=== PATIENT | female | born 1945 | race African-American/Black ===

== ENCOUNTER 2018-02-10 11:01 | Emergency (ER) | payer OTHER ==
[~2018-02-10] VITALS: Ht 172.7 cm; Wt 61.7 kg
[~2018-02-10 11:01] MED LIST: APETIGEN ELIXI120 ML PO; ATORVASTATIN CA40 MG; CARDIZEM LA300 MG; ECOTRIN81 MG; FOLIC ACID1 MG; GALANTAMINE HBR8 MG; GLUCOPHAGE XR500 MG; LIPITOR40 MG; MEDROLPACK PO; METFORMIN HYDRO25 GM; MIRALAX510 GM PO; MONTELUKAST SOD10 MG; SINGULAIR10 MG; SYNTHROID88 MCG; TESSALON PERLE100 M1 PO; TUSSI PRES-B L120 M1 PO; TUSSI-PRES LIQ118 ML PO; VISTARIL25 MG PO; XOPENEX1.25 MG/0. IH; ZANTAC150 M3; ZESTORETIC 10-1 EACH; ZYNCOF 20-400120 ML PO; [UNRECOGNIZED DRUG - OTHER] PO
[2018-02-10] MEDS ORDERED: KETO10TA2 PO (14:37)
== END 2018-02-10 14:41 | disposition home or self-care (01) ==
LOC: ER 11:01
DX: M25.531 Pain in right wrist (principal)

== ENCOUNTER 2018-07-27 16:31 | Emergency (ER) | payer OTHER ==
[~2018-07-27] VITALS: Ht 172.7 cm; Wt 62.6 kg
[~2018-07-27 16:31] MED LIST changes: +KETO10TA2 PO
== END 2018-07-27 18:32 | disposition home or self-care (01) ==
LOC: ER 16:31
DX: M54.5 Low back pain (principal)

== ENCOUNTER → 2019-06-25 | Emergency (ER) | payer OTHER ==
[~2019-06-25] VITALS: Ht 172.7 cm; Wt 65.8 kg
== END | disposition home or self-care (01) ==
LOC: ER 19:00
DX: R42 Dizziness and giddiness (principal); R00.2 Palpitations

== ENCOUNTER 2020-05-26 07:14 | Outpatient (CLI) | payer OTHER | END 2020-05-26 07:19 | disposition home or self-care (01) | LOC: TOM 07:14 | PROVIDERS: ATTEND Internal Medicine Gastroenterology | DX: R10.31 Right lower quadrant pain (principal) | CPT/HCPCS: 74177; Q9965 ==

== ENCOUNTER 2021-07-14 07:08 | Outpatient (CLI) | payer OTHER | END 2021-07-14 07:23 | disposition home or self-care (01) | LOC: TOM 07:08 | PROVIDERS: ATTEND Internal Medicine Gastroenterology | DX: K57.90 Diverticulosis of intestine, part unspecified, without perforation or abscess without bleeding (principal); K56.50 Intestinal adhesions [bands], unspecified as to partial versus complete obstruction; K56.600 Partial intestinal obstruction, unspecified as to cause ==

== ENCOUNTER 2022-04-04 08:13 | Emergency (ER) | payer OTHER ==
[~2022-04-04] VITALS: Ht 172.7 cm; Wt 63.5 kg
[2022-04-04] MEDS ORDERED: GLIMEPIRIDE2 MG (08:28)
[2022-04-04] MEDS ORDERED: SINGULAIR10 MG PO (08:29)
[2022-04-04] MEDS ORDERED: ZANTAC25 MG/1 ML (08:29)
[2022-04-04] MEDS ORDERED: DEXILANT60 MG PO (08:30)
== END 2022-04-04 10:08 | disposition home or self-care (01) ==
LOC: ER 08:13
DX: T78.3XXA Angioneurotic edema, initial encounter (principal); X58.XXXA Exposure to other specified factors, initial encounter; Y92.9 Unspecified place or not applicable; E11.9 Type 2 diabetes mellitus without complications; Z79.84 Long term (current) use of oral hypoglycemic drugs; I10 Essential (primary) hypertension; Z88.8 Allergy status to other drugs, medicaments and biological substances

== ENCOUNTER 2022-05-01 09:07 | Outpatient (CLI) | payer OTHER ==
[~2022-05-01 09:07] MED LIST changes: +DEXILANT60 MG PO; +GLIMEPIRIDE2 MG; +SINGULAIR10 MG PO; +ZANTAC25 MG/1 ML
== END 2022-05-01 09:15 | disposition home or self-care (01) ==
LOC: SONOGRAMA 09:07
DX: K76.0 Fatty (change of) liver, not elsewhere classified (principal)

== ENCOUNTER 2024-10-22 13:47 | Emergency (ER) | payer OTHER ==
[~2024-10-22] VITALS: Ht 172.7 cm; Wt 72.6 kg
[2024-10-22] MEDS ORDERED: KETOROLAC TROMETHAMINE 60 MG VIAL IM STA (15:44)
[2024-10-22] MEDS ORDERED: KETOROLAC TROMETHAMINE 60 MG VIAL IM ONE (15:58)
[2024-10-22 16:13] LABS: HEMATOCRIT 33.3 % (36.0-45.00); HEMOGLOBIN 10.8 g/dL (12.0-15.00); MEAN CELL VOLUME 72.5 fL (80.00-100.00); MEAN CORPUSCULAR HEMOGLOBIN 23.4 pg (27.00-32.0); MEAN CORPUSCULAR HGB CONC 32.2 g/dl (32.0-36.0); PLATELET COUNT 303 K/uL (150-450); RED CELL DISTRIBUTION WIDTH 16.4 % (11.5-14.5)
[2024-10-22 16:39] LABS: ALBUMIN 3.4 gm/dL (3.4-5.0); BILIRUBIN TOTAL 0.63 mg/dL (0.3-1.2); CREATININE SERUM 0.79 mg/dL (0.55-1.02); GFR 70.38; GLOBULINA 4.4 G/DL (2.4-3.5); POTASSIUM 4.47 mEq/L (3.5-5.1); TOTAL PROTEIN 7.8 gm/dL (6.4-8.2)
[2024-10-22 17:02] LABS: PH,URINE 5.5 (5.0-8.0); URINE APPEARANCE Clear; URINE BILIRRUBIN Negative (NEGATIVE); URINE BLOOD Negative; URINE COLOR Yellow; URINE GLUCOSE Negative (NEGATIVE); URINE KETONE Negative (NEGATIVE); URINE LEUKOCYTE Trace; URINE NITRATE Negative; URINE PROTEIN Negative (NEGATIVE); URINE UROBILINOGEN 0.2 E.U./dl
[2024-10-22 17:06] LABS: URINE BACTERIA 151.7 uL (0.0-1933); URINE EPITHELIAL CELLS 20.7 uL (0.0-38.8); URINE RBC 6.9 uL (0.0-20.8); URINE WBC 37.3 uL (0.0-23.2)
[2024-10-22 17:16] LABS: URINE CAST 0.29 uL (0.0-1.40)
== END 2024-10-22 20:30 | disposition home or self-care (01) ==
LOC: ER 13:47
DX: M54.9 Dorsalgia, unspecified (principal); N39.0 Urinary tract infection, site not specified; Z88.8 Allergy status to other drugs, medicaments and biological substances; I10 Essential (primary) hypertension; E11.9 Type 2 diabetes mellitus without complications
CPT/HCPCS: 36415; 72100; 96372; 99283; J1885